=== PATIENT | male | born 1985 | race African-American/Black ===

== ENCOUNTER 2019-01-20 13:28 | Inpatient (IN) | payer OTHER ==
[2019-01-20 15:31] VITALS: BMI 26.9
--- NOTE | 2019-01-20 16:16 | HP ---
COWS - Scale Resting Pulse: 2= [place] 101-120 Sweatin= Chills/Flushing Restless Observation: 1= Difficult to Sit Still Pupil Size: 2= Moderately Dilated Bone or Joint Aches: 1= Mild Discomfort Runny Nose/ Eye Tearin= Runny Nose/Eyes GI Upset > 30mins: 1= Stomach Cramp Tremor Observation: 2= Slight Tremor Visible Yawning Observation: 0= None Anxiety or Irritability: 2=Irritable/Anxious Goose Flesh Skin: 0=Smooth Skin COWS Score: 14 CIWA Score - Admission Criteria [facility]ASAS Guidelines: Admission for Medically Managed Detox: Requires at least one of the followin. CIWA greater than 12 2. Seizures within the past 24 hours 3. Delirium tremens within the past 24 hours 4. Hallucinations within the past 24 hours 5. Acute intervention needed for co occurring medical disorder 6. Acute intervention needed for co occurring psychiatric disorder 7. Severe withdrawal that cannot be handled at a lower level of care (continued vomiting, continued diarrhea, abnormal vital signs) requiring intravenous medication and/or fluids 8. Admission ROS [facility] [employer] [facility] Chief Complaint: I GOTTA STOP Allergies/Adverse Reactions: Allergies Allergy/AdvReac Type Severity Reaction Status Date / Time No Known Allergies Allergy Verified 01/20/19 15:22 History of Present Illness: 15 Y HO POLYSUBSTANCE USE NO SIGNIFICANT HO ABSTINENCE - Ebola screening Have you traveled outside of the country in the last 21 days: No Have you had contact with anyone from an Ebola affected area: No - Review of Systems Constitutional: Malaise, Changes in sleep EENT: reports: Nose Congestion Respiratory: reports: No Symptoms reported Cardiac: reports: No Symptoms Reported GI: reports: Abdominal cramping : reports: No Symptoms Reported Musculoskeletal: reports: No Symptoms Reported Integumentary: reports: Other (PERIORBITAL ECHYMOSES SP TRAUMA) Neuro: reports: No Symptoms reported Endocrine: reports: No Symptoms Reported Hematology: reports: No Symptoms Reported Psychiatric: reports: Disorientated Patient History - Patient Medical History Hx Anemia: No Hx Asthma: No Hx Chronic Obstructive Pulmonary Disease (COPD): No Hx Cancer: No Hx Cardiac Disorders: No Hx Congestive Heart Failure: No Hx Hypertension: No Hx Hypercholesterolemia: No Hx Pacemaker: No HX Cerebrovascular Accident: No Hx Seizures: No Hx Dementia: No Hx Diabetes: No Hx Gastrointestinal Disorders: No Hx Liver Disease: Yes Hx Genitourinary Disorders: No Hx Sexually Transmitted Disorders: No Hx Renal Disease (ESRD): No Hx Thyroid Disease: No Hx Human Immunodeficiency Virus (HIV): No Hx Hepatitis C: Yes Hx Depression: No Hx Suicide Attempt: No Hx Bipolar Disorder: No Hx Schizophrenia: No - Patient Surgical History Past Surgical History: No - PPD History Documented Results: Negative w/o proof - Smoking Cessation Smoking history: Current every day smoker Have you smoked in the past 12 months: Yes Aproximately how many cigarettes per day: 10 Initiated information on smoking cessation: Yes 'Breaking Loose' booklet given: 01/20/19 - Substances abused Heroin Substance route: Injection Frequency: Daily Amount used: 1-2 grams Age of first use: 20 Date of last use: 01/18/19 Family Disease History - Family Disease History Family History: Unremarkable Admission Physical Exam BHS - Vital Signs Vital Signs: Vital Signs - 24 hr 01/20/19 01/20/19 15:22 15:36 Temperature 99.3 F 99.3 F Pulse Rate 106 H 106 H Respiratory 20 20 Rate Blood Pressure 143/88 143/88 - Physical General Appearance: Yes: Disheveled, Anxious HEENTM: Yes: Other (L PERIORBITAL ECHYMOSES AND CONJUCTIVAL INJECTION) Respiratory: Yes: Normal Breath Sounds Neck: Yes: Within Normal Limits, No masses,lesions,Nodules Breast: Yes: Breast Exam Deferred Cardiology: Yes: Regular Rhythm, Regular Rate, S1, S2 Abdominal: Yes: Within Normal Limits Genitourinary: Yes: Within Normal Limits Back: Yes: Within Normal Limits Musculoskeletal: Yes: Within Normal Limits Extremities: Yes: Within Normal Limits Neurological: Yes: Other (TIRED) Integumentary: Yes: Within Normal Limits, Track Brown Lymphatic: Yes: Within Normal Limits - Diagnostic (1) Opiate dependence Current Visit: Yes Status: Acute (2) Opiate withdrawal Current Visit: Yes Status: Acute (3) Cocaine dependence Current Visit: Yes Status: Acute (4) Left orbit trauma Current Visit: Yes Status: Acute Breathalyzer - Breathalyzer Breathalyzer: 0 Urine Drug Screen - Test Device Lot number: [id number] Expiration date: 10/25/20 - Control Is test valid?: Yes - Results Drug screen NEGATIVE: No Urine drug screen results: FAITH-Cocaine, MOP-Opiates Inpatient Rehab Admission - Rehab Decision to Admit Inpatient rehab admission?: No
[2019-01-20] MEDS ORDERED: MELATONIN 5 MG TABLETS PO PRN (16:17)
[2019-01-20] MEDS ORDERED: MAGNESIUM CITRATE 300 ML BOTTLE PO PRN (16:17)
[2019-01-20] MEDS ORDERED: MAG HYDROX/AL HYDROX/SIMETH 30 ML UNIT-DOSE CUP PO PRN (16:17)
[2019-01-20] MEDS ORDERED: hydrOXYzine PAMOATE 25 MG CAPSULE (FP) PO PRN (16:17)
[2019-01-20] MEDS ORDERED: BISMUTH SUBSALICYLATE 524 MG/30 ML UD PO PRN (16:17)
[2019-01-20] MEDS ORDERED: MAGNESIUM HYDROX 2400MG/30ML ORAL SUSPENSION 30 ML CUP PO PRN (16:17)
[2019-01-20] MEDS ORDERED: METHOCARBAMOL 500 MG TABLET PO PRN (16:17)
[2019-01-20] MEDS ORDERED: MENTHOL/PHENOL 1 EACH UD MM PRN (16:17)
[2019-01-20] MEDS ORDERED: ACETAMINOPHEN 325 MG TABLET (FP) PO PRN ×2 (16:17)
[2019-01-20] MEDS ORDERED: IBUPROFEN 400 MG TABLET (FP) PO PRN (16:17)
[2019-01-20] MEDS ORDERED: METHADONE HCL 10 MG TABLET (FOR DETOX USE ONLY) PO ONE (18:30)
[2019-01-20] MEDS: THIAMINE HCL 100 MG TABLET (FP) PO SCH (21:10)
[2019-01-20] MEDS: cloNIDine HCL 0.1 MG TABLET PO PRN (21:10)
[2019-01-21] MEDS ORDERED: METHADONE HCL 5 MG TABLET (FOR DETOX USE ONLY) PO ONE (10:00)
[2019-01-21] MEDS: PRENATAL VITAMINS W/ FOLIC ACID TABLET (FP) PO SCH (10:17)
[2019-01-21] MEDS ORDERED: diazePAM 5 MG TABLET PO PRN (11:52)
[2019-01-21] MEDS ORDERED: P-EPHED 60MG/TRIPROLIDI 2.5MG TABLET PO PRN ×2 (11:53→12:34)
[2019-01-21] MEDS ORDERED: SODIUM CHLORIDE NASAL SPRAY 44 ML BOTTLE NS PRN (11:53)
--- NOTE | 2019-01-21 11:56 | PN ---
[facility] COWS - Scale Resting Pulse: 0= [place] 80 or Below Sweatin=Flushed/Facial Moisture Restless Observation: 1= Difficult to Sit Still Pupil Size: 0= Normal to Room Light Bone or Joint Aches: 2= Severe Diffuse Aches Runny Nose/ Eye Tearin= Nasal Congestion GI Upset > 30mins: 0= None Tremor Observation of Outstretched Hands: 1= Tremor [place], Not Seen Yawning Observation: 1= 1-2x During Session Anxiety or Irritability: 2=Irritable/Anxious Goose Flesh Skin: 0=Smooth Skin COWS Score: 10 S Progress Note (SOAP) Subjective: irritable agitation sweats anxiety nasal congestion body aches chills Objective: 01/21/19 11:55 Vital Signs Temperature 98.8 F 01/21/19 09:35 Pulse Rate 73 01/21/19 09:35 Respiratory Rate 18 01/21/19 09:35 Blood Pressure 118/61 01/21/19 09:35 O2 Sat by Pulse Oximetry (%) labs pending aaox3 ambulating no acute distress Assessment: 01/21/19 11:55 withdrawal sx Plan: continue detox increase fluids valium 10mg prn ocean spray n/s acitifed prn motrin/tylenol prn
[2019-01-21 12:00] LABS: HEMATOCRIT 41.6 % (35.4-49); HEMOGLOBIN 13.5 GM/dL (11.7-16.9); MCH 26.4 pg (25.7-33.7); MCHC 32.6 g/dl (32.0-35.9); MEAN PLT VOLUME 8.7 fl (7.5-11.1); PLATELET COUNT 294 K/MM3 (134-434); RBC 5.14 M/mm3 (4.00-5.60); RDW 15.5 % (11.9-15.9); WHITE BLOOD COUNT 5.3 K/mm3 (4.0-10.0)
[2019-01-21 12:27] LABS: ALBUMIN 2.9 g/dl (3.4-5.0); BILIRUBIN,TOTAL 0.2 mg/dL (0.2-1); BLOOD UREA NITROGEN 11.8 mg/dL (7-18); CALCIUM 8.5 mg/dL (8.5-10.1); CREATININE 0.9 mg/dL (0.55-1.3); POTASSIUM 3.9 mmol/L (3.5-5.1); TOT PROT 7.6 g/dl (6.4-8.2)
[2019-01-21] MEDS: cloNIDine HCL 0.1 MG TABLET PO PRN (17:14)
[2019-01-21] MEDS: THIAMINE HCL 100 MG TABLET (FP) PO SCH (22:17)
[2019-01-22] MEDS: PRENATAL VITAMINS W/ FOLIC ACID TABLET (FP) PO SCH (09:46)
[2019-01-22] MEDS ORDERED: METHADONE HCL 10 MG TABLET (FOR DETOX USE ONLY) PO ONE (10:00)
--- NOTE | 2019-01-22 10:33 | PN ---
[facility] COWS - Scale Resting Pulse: 1= [place] 81-100 Sweatin= Chills/Flushing Restless Observation: 0= Sits Still Pupil Size: 0= Normal to Room Light Bone or Joint Aches: 2= Severe Diffuse Aches Runny Nose/ Eye Tearin= Nasal Congestion GI Upset > 30mins: 0= None Tremor Observation of Outstretched Hands: 1= Tremor [place], Not Seen Yawning Observation: 0= None Anxiety or Irritability: 1=Feels Anxious/Irritable Goose Flesh Skin: 0=Smooth Skin COWS Score: 7 BHS Progress Note (SOAP) Subjective: sweats body aches irritable interrupted sleep Objective: 01/22/19 10:33 Vital Signs Temperature 98.4 F 01/22/19 09:28 Pulse Rate 90 01/22/19 09:28 Respiratory Rate 20 01/22/19 09:28 Blood Pressure 147/98 01/22/19 09:28 O2 Sat by Pulse Oximetry (%) Laboratory Tests 01/21/19 01/21/19 01/21/19 07:30 07:30 07:30 WBC 5.3 RBC 5.14 Hgb 13.5 Hct 41.6 MCV 81.0 MCH 26.4 MCHC 32.6 RDW 15.5 Plt Count 294 MPV 8.7 Sodium 140 Potassium 3.9 Chloride 106 Carbon Dioxide 26 Anion Gap 9 BUN 11.8 Creatinine 0.9 Est GFR (CKD-EPI)AfAm 131.44 Est GFR (CKD-EPI)NonAf 113.41 Random Glucose 119 H Calcium 8.5 Total Bilirubin 0.2 AST 24 ALT 25 Alkaline Phosphatase 74 Total Protein 7.6 Albumin 2.9 L RPR Titer Nonreactive HIV 1&2 Antibody Screen HIV P24 Antigen 01/21/19 07:30 WBC RBC Hgb Hct MCV MCH MCHC RDW Plt Count MPV Sodium Potassium Chloride Carbon Dioxide Anion Gap BUN Creatinine Est GFR (CKD-EPI)AfAm Est GFR (CKD-EPI)NonAf Random Glucose Calcium Total Bilirubin AST ALT Alkaline Phosphatase Total Protein Albumin RPR Titer HIV 1&2 Antibody Screen Cancelled HIV P24 Antigen Cancelled aaox3 ambulating no acute distress labs noted Assessment: 01/22/19 10:33 withdrawal sx Plan: continue detox increase fluids d/c in am
[2019-01-22] MEDS: THIAMINE HCL 100 MG TABLET (FP) PO SCH (22:22)
[2019-01-23] MEDS ORDERED: METHADONE HCL 5 MG TABLET (FOR DETOX USE ONLY) PO ONE (06:00)
[2019-01-23 07:52] VITALS: BP 143/79; PULSE 85; TEMP 97.3
--- NOTE | 2019-01-23 09:36 | DS ---
[facility] Detox Discharge Summary Admission Date: 01/20/19 Discharge Date: 01/23/19 - History Present History: Cocaine Dependence, Opioid Dependence - Physical Exam Results Vital Signs: Vital Signs Temperature 97.3 F L 01/23/19 07:51 Pulse Rate 85 01/23/19 07:51 Respiratory Rate 18 01/23/19 07:51 Blood Pressure 143/79 01/23/19 07:51 O2 Sat by Pulse Oximetry (%) Pertinent Admission Physical Exam Findings: Vital Signs Temperature 97.3 F L 01/23/19 07:51 Pulse Rate 85 01/23/19 07:51 Respiratory Rate 18 01/23/19 07:51 Blood Pressure 143/79 01/23/19 07:51 O2 Sat by Pulse Oximetry (%) Laboratory Tests 01/21/19 01/21/19 01/21/19 07:30 07:30 07:30 WBC 5.3 RBC 5.14 Hgb 13.5 Hct 41.6 MCV 81.0 MCH 26.4 MCHC 32.6 RDW 15.5 Plt Count 294 MPV 8.7 Sodium 140 Potassium 3.9 Chloride 106 Carbon Dioxide 26 Anion Gap 9 BUN 11.8 Creatinine 0.9 Est GFR (CKD-EPI)AfAm 131.44 Est GFR (CKD-EPI)NonAf 113.41 Random Glucose 119 H Calcium 8.5 Total Bilirubin 0.2 AST 24 ALT 25 Alkaline Phosphatase 74 Total Protein 7.6 Albumin 2.9 L RPR Titer Nonreactive HIV-1 Antibody HIV Ag/Ab Interpret HIV-2 Antibody HIV 1&2 Ag/Ab, 4th Gen HIV 1&2 Antibody Screen HIV P24 Antigen 01/21/19 01/21/19 07:30 10:00 WBC RBC Hgb Hct MCV MCH MCHC RDW Plt Count MPV Sodium Potassium Chloride Carbon Dioxide Anion Gap BUN Creatinine Est GFR (CKD-EPI)AfAm Est GFR (CKD-EPI)NonAf Random Glucose Calcium Total Bilirubin AST ALT Alkaline Phosphatase Total Protein Albumin RPR Titer HIV-1 Antibody Positive H HIV Ag/Ab Interpret Hiv-1 positive HIV-2 Antibody Negative HIV 1&2 Ag/Ab, 4th Gen Reactive H HIV 1&2 Antibody Screen Cancelled HIV P24 Antigen Cancelled pt is aaox3 labs noted HIV + a confirmatory will be sent to lab however, pt was not made aware in person because he left today was his discharge letter with lab results will be sent o address on file - Treatment Hospital Course: Detox Protocol Followed, Detoxed Safely, Responded well, Discharged Condition Good, Rehab Referral Accepted Patient has Accepted a Rehab Referral to: pt declined rehab; referral provided - Medication Discharge Medications: Ambulatory Orders NK [No Known Home Medication] 01/20/19 - Diagnosis (1) Cocaine dependence Current Visit: Yes Status: Chronic Qualifiers: Substance use status: uncomplicated Qualified Code(s): F14.20 - Cocaine dependence, uncomplicated (2) Left orbit trauma Current Visit: Yes Status: Acute Qualifiers: Encounter type: initial encounter Qualified Code(s): S05.92XA - Unspecified injury of left eye and orbit, initial encounter (3) Opiate withdrawal Current Visit: Yes Status: Chronic - AMA Did Patient Leave Against Medical Advice: No
== END 2019-01-23 09:05 | disposition home or self-care (01) | DRG 773 ==
LOC: YASAS 13:28 → Y6N 17:22
PROVIDERS: ADMIT Surgery; ATTEND Surgery
PROC: HZ2ZZZZ Detoxification Services for Substance Abuse Treatment (ICD-10-PCS; principal; 2019-01-20)
DX: F11.23 Opioid dependence with withdrawal (principal); F14.20 Cocaine dependence, uncomplicated; F17.210 Nicotine dependence, cigarettes, uncomplicated; Z21 Asymptomatic human immunodeficiency virus [HIV] infection status; B18.2 Chronic viral hepatitis C; S05.8X2A Other injuries of left eye and orbit, initial encounter; X58.XXXA Exposure to other specified factors, initial encounter; Y93.89 Activity, other specified; Y92.89 Other specified places as the place of occurrence of the external cause; Y99.8 Other external cause status
CPT/HCPCS: 36415; 80053; 85027; 86480; 86593; 87389; J0735